=== PATIENT | female | born 1975 | race Caucasian/White ===

== ENCOUNTER → 2016-07-05 | Outpatient (CLI) | payer OTHER ==
[2016-07-05 13:07] LABS: BASO # 0.1 x10^3/uL (0.0-0.2); BASO % 1 % (0-3); EOS % 2 % (0-3); HEMATOCRIT 39.5 % (36.0-47.0); HEMOGLOBIN 12.8 g/dL (12.0-15.5); LYMPH # 1.6 x10^3/uL (1.0-4.8); LYMPH % 19 % (24-48); MEAN CORPUSCULAR HEMOGLOBIN 25 pg (25-35); MEAN CORPUSCULAR HGB CONC 33 g/dL (31-37); MEAN CORPUSCULAR VOLUME 77 fL (79-100); MONO % 7 % (0-9); NEUT % 71 % (31-73); PLATELET COUNT 289 x10^3/uL (140-400); RED BLOOD COUNT 5.16 x10^6/uL (3.50-5.40); RED CELL DISTRIBUTION WIDTH 15.3 % (11.5-14.5)
[2016-07-05 13:17] LABS: WHITE BLOOD COUNT 8.5 x10^3/uL (4.0-11.0)
== END | disposition home or self-care (01) ==
LOC: LAB 12:44
PROVIDERS: ATTEND Obstetrics & Gynecology
DX: O20.0 Threatened abortion (principal)
CPT/HCPCS: 36415; 84702; 85027

== ENCOUNTER 2016-07-22 10:57 | Day surgery (SDC) | payer OTHER ==
[~2016-07-22] VITALS: Ht 170.2 cm; Wt 95.3 kg
[~2016-07-22 10:57] MED LIST: CETI10CA PO; CLINDAMYCIN 600MG PREMIX 50 ML IV PRN; HYDROmorphone 2 MG/ML VIAL IV PRN; IBUP-1027 PO; IV RINGERS,LACTATED 1000ML 1,000 ML IV SCH; LIDOCAINE 1% 1 ML SYRINGE. ID PRN; MEPERIDINE PF 25 MG/ML VIAL. IV PRN; MIDAZOLAM HCL/PF 2 MG/2 ML VIAL. IV PRN; MORPHINE SULFATE 4 MG/ML DISP.SYRIN. IV PRN; PROCHLORPERAZINE 10 MG/2 ML VIAL. IV PRN; diphenhydrAMINE 50 MG/ML VIAL IV PRN; fentaNYL PF VIAL 100 MCG/2 ML VIAL IV PRN
[2016-07-22] MEDS ORDERED: DEXAMETHASONE SOD PHOS 20 MG/5 ML VIAL. ONE (11:45)
[2016-07-22] MEDS ORDERED: KETOROLAC 30 MG/ML INJ FOR OR. INJ ONE (11:45)
[2016-07-22] MEDS ORDERED: ONDANSETRON PF 4 MG/2 ML VIAL. ONE (11:45)
[2016-07-22] MEDS ORDERED: LIDOCAINE 2% 100 MG/5 ML SYRINGE. ONE (11:45)
[2016-07-22] MEDS ORDERED: PROPOFOL 20 ML IV ONE (11:45)
[2016-07-22] MEDS ORDERED: fentaNYL PF VIAL 100 MCG/2 ML VIAL ONE (11:46)
[2016-07-22] MEDS ORDERED: VASOPRESSIN 20 UNIT/ML VIAL. ONE (12:15)
[2016-07-22] MEDS ORDERED: OXYTOCIN 10 UNIT/ML VIAL. ONE (12:15)
[2016-07-22] MEDS ORDERED: MIDAZOLAM HCL/PF 2 MG/2 ML VIAL. ONE (12:29)
[2016-07-22] MEDS ORDERED: SEVOFLURANE 16 TO 30 MINUTES. IH ONE (12:51)
--- NOTE | 2016-07-22 13:02 | DISCH ---
DISCHARGE INSTRUCTIONS Condition on Discharge Condition on Discharge: Stable Activity After Discharge Activity Instructions for Disc: Activity as tolerated Lifting Instructions after Dis: No heavy lifting Driving Instructions after Dis: Do not drive today Diet after Discharge Diet after Discharge: Regular Contacting the DRBritton after DC Call your doctor for: Concerns you may have Follow-Up Follow up with: Dr. Frost in 1 week SKYE FROST Jr, MD July 22, 2016 13:02
--- NOTE | 2016-07-22 13:02 | PDOC ---
BRIEF OPERATIVE NOTE Pre-Op Diagnosis Blighted Ovum Post-Op Diagnosis SAme Procedure Performed SUction D&C Surgeon Dr. Vizcaino Anesthesia Type: General Blood Loss 200 ml Specimens Obtained POC Findings enlarged uterus with blighted ovum Complications none Additional Remarks ptSKYE Macedo Jr, MD July 22, 2016 13:02
[2016-07-22] MEDS ORDERED: OXYC-323 PO (13:32)
[2016-07-22] MEDS: fentaNYL PF VIAL 100 MCG/2 ML VIAL IV PRN ×2 (13:36→13:53)
[2016-07-22] MEDS ORDERED: OXYCODONE/APAP 5/325 TABLET. PO ONE (13:45)
[2016-07-22 14:25] VITALS: BP 151/62
--- NOTE | 2016-07-22 16:55 | OP ---
DATE OF SURGERY: 07/22/2016 PREOPERATIVE DIAGNOSIS: Blighted ovum. POSTOPERATIVE DIAGNOSIS: Blighted ovum. PROCEDURE: Suction D and C. SURGEON: Cosme Vizcaino M.D. ANESTHESIA: GETA. ESTIMATED BLOOD LOSS: 200 mL. COMPLICATIONS: None. FINDINGS: Enlarged uterus with blighted ovum. SUMMARY: A 40-year-old female who had presented to clinic and was diagnosed with blighted ovum. The patient required a suction D and C. She was counseled on risks, benefits and expectations and voiced clear understanding to proceed. DESCRIPTION OF PROCEDURE: The patient was taken to surgery suite and placed in dorsolithotomy position. She was prepped with Betadine solution and draped in sterile fashion. After adequate anesthesia, weighted speculum and curved [place] placed vaginally. Anterior lip of the cervix grasped with a single tooth tenaculum. Cervix was dilated up to size 9 with Hegar dilators. An 8-mm curved tip suction curette was then placed and rotated in a circumferential manner using pressure of 60 mmHg. This was able to remove blood and blood products as well as products of conception. Sharp curettage took place until a fine gritty surface was palpated circumferentially. The suction curet was passed once again to remove additional blood and products of conception. The single tooth tenaculum was removed. Weighted speculum was removed. Uterus palpated firm. The patient tolerated the procedure well and was taken to recovery room in stable condition. Sponge and needle count correct x 3. COSME VIZCAINO MD DR: SILVER/elier JOB#: [id number] / [id number]
--- NOTE | 2016-07-24 14:35 | PATHOLOGY ---
PATHOLOGY REPORT * * * * * * * * FINAL DIAGNOSIS: Uterine contents, suction D and C: - Products of conception comprised of few immature chorionic villi showing degenerative changes, and predominant segments of decidual tissue and endometrium showing Danielle-Kristie reaction. (JPM:varsha; d/t: 07/24/2016) REPORT ELECTRONICALLY SIGNED BY: Eric Fatima M.D. DATE/TIME: 07/24/2016 14:35 * * * * * * * * GROSS PATHOLOGY: Received in formalin labeled "Angela Schuster, products of conception," is a 10.5 x 9.8 x 1.0 cm aggregate of abundant blood clot admixed with spongiform, pink-lo tissue. tissue is not identified. Vesicular structures are not identified. [place] tissue is submitted in cassette [id number]. (SNA:JPM:varsha ; 07/23/2016) INITIAL CPT CODE(S): A; 21838 Professional services [place] [facility] [address] Technical services performed by [facility] at [address] [place] [address]. SPECIMEN(S) RECEIVED: A.Products of conception CLINICAL HISTORY: Blighted ovum PATIENT: ITALIA SCHUSTER /AGE: 508/21/1975 (Age: 40) PATIENT #: [id number] ALT CASE #: SPECIMEN COLLECTION DATE: 07/22/2016 SPECIMEN RECEIVED DATE: 07/22/2016 [facility] - [address] [place] [address] - PHONE: [phone] * * * END OF REPORT * * *
== END 2016-07-22 14:48 | disposition home or self-care (01) ==
LOC: SURG 10:57
PROVIDERS: ATTEND Obstetrics & Gynecology
DX: O02.0 Blighted ovum and nonhydatidiform mole (principal); E66.9 Obesity, unspecified; Z87.442 Personal history of urinary calculi; Z98.890 Other specified postprocedural states
CPT/HCPCS: 59812; J1100; J1885; J2250; J2405; J2590; J2704; J3010; J3490

== ENCOUNTER → 2019-01-20 | Outpatient (CLI) | payer OTHER ==
[~2019-01-20] MED LIST changes: -CLINDAMYCIN 600MG PREMIX 50 ML IV PRN; -HYDROmorphone 2 MG/ML VIAL IV PRN; -IV RINGERS,LACTATED 1000ML 1,000 ML IV SCH; -LIDOCAINE 1% 1 ML SYRINGE. ID PRN; -MEPERIDINE PF 25 MG/ML VIAL. IV PRN; -MIDAZOLAM HCL/PF 2 MG/2 ML VIAL. IV PRN; -MORPHINE SULFATE 4 MG/ML DISP.SYRIN. IV PRN; +OXYC1TAB15 PO; -PROCHLORPERAZINE 10 MG/2 ML VIAL. IV PRN; -diphenhydrAMINE 50 MG/ML VIAL IV PRN; -fentaNYL PF VIAL 100 MCG/2 ML VIAL IV PRN
[2019-01-20 10:48] LABS: BASO # 0.1 x10^3/uL (0.0-0.2); BASO % 2 % (0-3); EOS # 0.2 x10^3/uL (0.0-0.7); EOS % 4 % (0-3); HEMATOCRIT 29.7 % (36.0-47.0); LYMPH # 1.5 x10^3/uL (1.0-4.8); LYMPH % 22 % (24-48); MEAN CORPUSCULAR HEMOGLOBIN 19 pg (25-35); MEAN CORPUSCULAR HGB CONC 30 g/dL (31-37); MEAN CORPUSCULAR VOLUME 64 fL (79-100); MONO # 0.6 x10^3/uL (0.0-1.1); MONO % 9 % (0-9); NEUT # 4.3 x10^3/uL (1.8-7.7); NEUT % 64 % (31-73); PLATELET COUNT 387 x10^3/uL (140-400); RED BLOOD COUNT 4.64 x10^6/uL (3.50-5.40); RED CELL DISTRIBUTION WIDTH 19.2 % (11.5-14.5); WHITE BLOOD COUNT 6.8 x10^3/uL (4.0-11.0)
[2019-01-20 10:58] LABS: CALCIUM 9.1 mg/dL (8.5-10.1); CREATININE 0.8 mg/dL (0.6-1.0); GFR 78.7; POTASSIUM 4.3 mmol/L (3.5-5.1)
[2019-01-20 11:02] LABS: CHOLESTEROL/HDL RATIO 3.6
[2019-01-20 11:07] LABS: FREE T4 0.85 ng/dL (0.76-1.46); THYROID STIM HORMONE (TSH) 1.041 uIU/mL (0.358-3.74)
[2019-01-20 11:19] LABS: PLT ESTIMATE ADEQUATE (ADEQUATE)
[2019-01-20 11:21] LABS: ANISOCYTOSIS SLIGHT; HYPOCHROMIA MOD; POIKILOCYTOSIS PRESENT; POLYCHROMASIA SLIGHT
--- NOTE | 2019-01-20 12:52 | CARD ---
MR#: [id number] Date of Study: 01/20/2019 Ordering Physician: JEREMIAH GARZA, Referring Physician: JEREMIAH GARZA, Tech: Celia Prieto APPROVED REPORT EXAM: Two-dimensional and M-mode echocardiogram with Doppler and color Doppler. Other Information Quality : AverageHR: 80bpm INDICATION Tachycardia 2D DIMENSIONS RVDd2.7 (2.9-3.5cm)Left Atrium(2D)3.4 (1.6-4.0cm) IVSd1.0 (0.7-1.1cm)Aortic Root(2D)2.9 (2.0-3.7cm) LVDd4.8 (3.9-5.9cm)LVOT Diameter2.0 (1.8-2.4cm) PWd1.1 (0.7-1.1cm)LVDs3.1 (2.5-4.0cm) FS (%) 36.1 %SV71.6 ml LVEF(%)65.6 (>50%) Aortic Valve AoV Peak Simon.148.7cm/sAoV VTI27.0cm AO Peak GR.8.8mmHgLVOT Peak Simon.114.5cm/s AO Mean GR.4mmHgAVA (VMAX)2.37cm2 Mitral Valve MV E Bhjnjxhl35.9cm/sMV DECEL [id number] MV A Rymolcfa50.2cm/sE/A Ratio1.0 Pulmonary Valve PV Peak Ybsejjwc15.5cm/s Tricuspid Valve TR P. Qoszhclw410pj/sRAP [id number] TR Peak Gr.92izRnJPWM07lrHx Pulmonary Vein S1 Ssfpieda20.9cm/sD2 Ghzwcklr61.4cm/s PVa [id number] LEFT VENTRICLE The left ventricle is normal size. There is borderline concentric left ventricular hypertrophy. The l eft ventricular systolic function is normal. Left ventricular ejection fraction is 50-55%. There is n ormal LV segmental wall motion. The left ventricular diastolic function and filling is normal for age . RIGHT VENTRICLE The right ventricle is normal size. There is normal right ventricular wall thickness. The right ventr icular systolic function is normal. ATRIA The left atrium size is normal. The right atrium size is normal. The interatrial septum is intact wit h no evidence for an atrial septal defect or patent foramen ovale as noted on 2-D or Doppler imaging. AORTIC VALVE The aortic valve is normal in structure and function. Doppler and Color Flow revealed no significant aortic regurgitation. There is no significant aortic valvular stenosis. MITRAL VALVE The mitral valve is normal in structure and function. There is no evidence of mitral valve prolapse. There is no mitral valve stenosis. Doppler and Color-flow revealed trace mitral regurgitation. TRICUSPID VALVE The tricuspid valve is normal in structure and function. Doppler and Color Flow revealed trace tricus pid regurgitation with an estimated PAP of 27 mmHg. There is no tricuspid valve prolapse or vegetatio n. There is no tricuspid valve stenosis. PULMONIC VALVE The pulmonary valve is normal in structure and function. Doppler and Color Flow revealed no pulmonic valvular regurgitation. GREAT VESSELS The aortic root is normal in size. The IVC is normal in size and collapses >50% with inspiration. PERICARDIAL EFFUSION There is no evidence of significant pericardial effusion. Critical Notification Critical Value: No <Conclusion> The left ventricle is normal size. The left ventricular systolic function is normal. Left ventricular ejection fraction is 50-55%. There is borderline concentric left ventricular hypertrophy. There is no significant aortic valvular stenosis. Doppler and Color Flow revealed no significant aortic regurgitation. Doppler and Color-flow revealed trace mitral regurgitation. Doppler and Color Flow revealed trace tricuspid regurgitation with an estimated PAP of 27 mmHg. Signed by : Cosme Fontanez MD Electronically Approved : 01/20/2019 12:51:18
== END | disposition home or self-care (01) ==
LOC: ECHO 10:22
PROVIDERS: ATTEND Family Medicine
DX: Z13.220 Encounter for screening for lipoid disorders (principal); I51.7 Cardiomegaly; R00.0 Tachycardia, unspecified
CPT/HCPCS: 36415; 80048; 80061; 84439; 84443; 85025; 93306